=== PATIENT | female | born 1950 | race Caucasian/White ===

== ENCOUNTER → 2016-11-05 | Outpatient (CLI) | payer BC ==
[~2016-11-05] MED LIST: OPTIRAY 320 IV PRN
--- NOTE | 2016-11-05 14:14 | DIAGNOSTIC IMAGING REPORT ---
CT ABD/PELVIS IV AND ORAL CONT CLINICAL HISTORY: K52.9 Chronic [id number] Abdominal [id number] Fecal urgenc COMPARISON STUDY: None. TECHNIQUE: Following the IV administration of 92 mL of Optiray-320, CT scan of the abdomen and pelvis was performed from the lung bases to the proximal femurs. Images are reviewed in the axial, sagittal, and coronal planes. IV contrast was administered without complication. A dose lowering technique was utilized adhering to the principles of ALARA. CT DOSE: 306.42 mGy.cm FINDINGS: Lower chest: There is a small pericardial effusion. There are basilar atelectatic changes. Liver: There is a to small to characterize 7 mm hypodensity within the left hepatic lobe anteriorly. Gallbladder: Cholelithiasis Spleen: Normal in size and attenuation. Pancreas: Unremarkable. Adrenal glands: Unremarkable. Kidneys: There is symmetric renal cortical enhancement. The kidneys are normal in size without hydronephrosis. Bowel: There are no transition zones to indicate bowel obstruction. There is no acute diverticulitis. There is a redundant sigmoid colon. There are no findings to indicate acute appendicitis. Peritoneum: There is no intraperitoneal free air or abdominal ascites. There is mild pelvic floor prolapse. Vasculature: The abdominal aorta is normal in course and caliber. There are atheromatous calcifications at the left renal artery origin Adenopathy: None. Pelvic viscera: There is mild pelvic floor prolapse. No pathologic adnexal masses are visualized. Skeletal structures: No destructive osseous lesions are seen. IMPRESSION: 1. No evidence of bowel obstruction. No evidence of free air 2. Cholelithiasis 3. Mild pelvic floor prolapse Electronically signed by: Abel Zaragoza M.D. 11/05/2016 2:12 PM Dictated Date/Time: 11/05/2016 2:02 PM
== END | disposition home or self-care (01) ==
LOC: C.CTS 11:25
PROVIDERS: ATTEND Registered Nurse
DX: R63.4 Abnormal weight loss (principal); R15.2 Fecal urgency; K52.9 Noninfective gastroenteritis and colitis, unspecified; R10.9 Unspecified abdominal pain

== ENCOUNTER → 2017-01-21 | Outpatient (CLI) | payer BC ==
--- NOTE | 2017-01-21 10:01 | DIAGNOSTIC IMAGING REPORT ---
BILIARY ULTRASOUND CLINICAL HISTORY: R79.89 Elevated [id number] COMPARISON STUDY: CT scan dated 11/05/2016 FINDINGS: The pancreas appear normal as visualized. Multiple gallstones were identified. There is no gallbladder wall thickening. There is no pericholecystic fluid. Common bile duct is mildly dilated measuring 8 mm. There is no intrahepatic biliary ductal dilatation. No hepatic masses were visualized. There is no right-sided hydronephrosis. IMPRESSION: 1. Cholelithiasis. 2. Mildly dilated common bile duct measuring 8 mm. Electronically signed by: Abel Zaragoza M.D. 01/21/2017 10:00 AM Dictated Date/Time: 01/21/2017 9:57 AM
[2017-01-21 12:34] LABS: PROTHROMBIN TIME (PATIENT) 10.4 SECONDS (9.0-12.0)
[2017-01-21 13:19] LABS: FERRITIN 128.7 ng/ml (8.0-388.0)
== END ==
LOC: C.ULTR 08:56
PROVIDERS: ATTEND Registered Nurse
DX: R79.89 Other specified abnormal findings of blood chemistry (principal)

== ENCOUNTER → 2017-02-28 | Outpatient (CLI) | payer BC ==
[2017-02-28 12:29] LABS: ALT/SGPT 41 U/L (12-78); AST/SGOT 20 U/L (15-37); BLOOD UREA NITROGEN 10 mg/dl (7-18); BUN/CREATININE RATIO 15.4 (10-20); CALCIUM 9.1 mg/dl (8.5-10.1); CARBON DIOXIDE 29 mmol/L (21-32); CHLORIDE 106 mmol/L (98-107); CREATININE 0.66 mg/dl (0.60-1.20); GLUCOSE,FASTING 89 mg/dl (70-99); POTASSIUM 4.4 mmol/L (3.5-5.1); SODIUM 136 mmol/L (136-145)
[2017-02-28 12:32] LABS: ALB/GLOB RATIO 1.2 (0.9-2); ALKALINE PHOSPHATASE 77 U/L (45-117); CHOLESTEROL 146 mg/dl (0-200); CHOLESTEROL/HDL RATIO 2.2; HDL CHOLESTEROL 67 mg/dl; LDL CHOLESTEROL CALCULATED 64 mg/dl; TRIGLYCERIDES 77 mg/dl (0-150); VERY LOW DENSITY LIPOPROT CALC 15 mg/dl
== END | disposition home or self-care (01) ==
LOC: C.LABPBG 09:26
PROVIDERS: ATTEND Physician Assistant
DX: Z00.00 Encounter for general adult medical examination without abnormal findings (principal); R79.89 Other specified abnormal findings of blood chemistry

== ENCOUNTER → 2017-03-05 | Outpatient (CLI) | payer BC ==
--- NOTE | 2017-03-05 13:34 | DIAGNOSTIC IMAGING REPORT ---
MRCP CLINICAL HISTORY: Weight loss, gallstones. Mild common bile duct dilatation. COMPARISON STUDY: CT of the abdomen and pelvis November 05, 2016 and right upper quadrant ultrasound January 21, 2017. TECHNIQUE: Utilizing 1.5 Jennifer magnet and dedicated coil, multiplanar, multiecho imaging of the upper abdomen was performed utilizing heavily T2 weighted pulsing sequences. No intravenous contrast was administered. FINDINGS: Multiple T2 hypointense foci within the gallbladder reflect gallstones. There is no pericholecystic fluid or gallbladder wall thickening. There is mild dilatation of the common bile duct which measures 1 cm in caliber. This is unchanged since CT of November 05, 2016. There is no intrahepatic biliary ductal dilatation. No common bile duct filling defects are identified. Caliber of the main pancreatic duct is at the upper limits of normal. There is no peripancreatic infiltration or fluid collections. No hepatic lesions are identified on this unenhanced exam. Unenhanced images of the spleen, adrenal glands and kidneys are normal. There is no hydronephrosis. There is no abdominal adenopathy or ascites. IMPRESSION: 1. Stable mild dilatation of the common bile duct, measuring 1 cm, since CT of November 05, 2016. No evidence of choledocholithiasis. No mass identified on unenhanced exam. Caliber of main pancreatic duct at upper limits of normal. 2. Cholelithiasis. Electronically signed by: Fidel Steele M.D. 03/05/2017 1:33 PM Dictated Date/Time: 03/05/2017 1:22 PM
== END | disposition home or self-care (01) ==
LOC: C.MRI 12:16
PROVIDERS: ATTEND Internal Medicine Gastroenterology
DX: R19.7 Diarrhea, unspecified (principal); R63.4 Abnormal weight loss; K80.20 Calculus of gallbladder without cholecystitis without obstruction

== ENCOUNTER → 2017-04-14 | Outpatient (CLI) | payer BC | LOC: C.MAMM 13:24 | PROVIDERS: ATTEND Physician Assistant | DX: M81.0 Age-related osteoporosis without current pathological fracture (principal) ==